=== PATIENT | male | born 1935 | race Caucasian/White ===

== ENCOUNTER 2016-08-15 07:13 | Day surgery (SDC) | payer MEDICARE ==
--- NOTE | ~2016-08-15 | EGD ---
EGD REPORT [facility] [address] [address] NAME: AMOS TRUONG : [birth year] STATUS : REG [facility]#: [id number] AGE: 80 ADM/REG DATE : 08/15/16 MR#: [id number] REPORT SERV DATE: 08/15/16 DICTATED BY: CHELO NETTLES DATE: 08/15/16 REPORT STATUS : Draft TRANSCRIBED BY: [facility] DATE: 08/15/16 Endoscopy Center Patient Name: Amos Truong Date of : 1935 Attending MD: CHELO NETTLES, Procedure Date No Time: 08/15/2016 Procedure: Upper GI endoscopy Indications: For therapy of Giraldo's esophagus, Giraldo's low grade dysplasia Referring MD: Celso You, RHIANNON BUCIO MD Medicines: Monitored Anesthesia Care Complications: No immediate complications. Estimated blood loss: None. Procedure: Pre-Anesthesia Assessment: - ASA Grade Assessment: III - A patient with severe systemic disease. After obtaining informed consent, the endoscope was passed under direct vision. Throughout the procedure, the patient's blood pressure, pulse, and oxygen saturations were monitored continuously. The GIF H190 [id number] was introduced through the mouth, and advanced to the second part of duodenum. The upper GI endoscopy was accomplished without difficulty. The patient tolerated the procedure well. Findings: The esophagus and gastroesophageal junction were examined with white light. Giraldo's esophagus was present. Islands of salmon-colored mucosa were present at 38 cm. The maximum longitudinal extent of these esophageal mucosal changes was 0.5 cm in length. Biopsies were taken with a cold forceps for histology. Verification of patient identification for the specimen was done. Estimated blood loss was minimal. The exam of the esophagus was otherwise normal. The stomach was normal. The cardia and gastric fundus were normal on retroflexion. The examined duodenum was normal. Circumferential radiofrequency ablation of Giraldo's esophagus was performed, using the CostPrize 360 catheter and balloon-based endoscopic ablation system. With the endoscope in place, the position and extent of the Giraldo's mucosa and the anatomic landmarks were noted. An appropriately sized radiofrequency ablation balloon catheter was then selected and passed transorally over the guidewire into the esophagus. The endoscope was introduced in a [id number] manner with the ablation catheter. The balloon ablation catheter was positioned under direct visualization so that the proximal edge of the electrode was at 41 cm EGD REPORT [place] [id number] [facility] [place]. [address] NAME: AMOS TRUONG : [birth year] STATUS : REG [facility] PAT#: [id number] AGE: 80 ADM/REG DATE : 08/15/16 MR#: [id number] REPORT SERV DATE: 08/15/16 DICTATED BY: CHELO NETTLES DATE: 08/15/16 REPORT STATUS : Draft TRANSCRIBED BY: [employer] DATE: 08/15/16 from the incisors. The balloon was automatically inflated and energy was applied at 10 J/cm2. The balloon electrode was moved 3 cm proximally, so that the proximal edge of the electrode was aligned with the distal edge of the ablation zone. The ablation zone was then cleaned of overlying coagulative debris using irrigation and suction via the endoscope and a cleaning cap. The ablation catheter was positioned under direct visualization so that the proximal edge of the electrode was at the distal edge of the ablation zone. Reinflation and a second round of ablation was performed with the application of 10 J/cm2 to re-treat the Giraldo's epithelium already treated with the first round of ablation. The ablation catheter and guidewire were then removed. The areas of the esophagus where Giraldo's mucosa had been ablated were then carefully examined with the endoscope. Impression: - Giraldo's esophagus. Biopsied. - Normal stomach. - Normal examined duodenum. - Circumferential radiofrequency ablation for Giraldo's esophagus performed (using the Halo 360 ablation catheter). Recommendation: - Patient has a contact number available for emergencies. The signs and symptoms of potential delayed complications were discussed with the patient. Return to normal activities tomorrow. Written discharge instructions were provided to the patient. - Return to previous diet. - Continue present medications. - Await pathology results. - Repeat the upper endoscopy in 3 months for retreatment. Procedure Code(s): --- Professional --- 88686, Esophagogastroduodenoscopy, flexible, transoral; with ablation of tumor(s), polyp(s), or other lesion(s) (includes pre- and post-dilation and guide wire passage, when performed) 71795, Esophagogastroduodenoscopy, flexible, transoral; with biopsy, single or multiple Diagnosis Code(s): --- Professional --- K22.710, Giraldo's esophagus with low grade dysplasia CPT copyright 2013 [employer]. All rights reserved. The codes documented in this report are preliminary and upon casting chipper review may be revised to meet current compliance requirements. EGD REPORT [facility] [address] [address] NAME: AMOS TRUONG : [birth year] STATUS : REG [facility] PAT#: [id number] AGE: 80 ADM/REG DATE : 08/15/16 MR#: [id number] REPORT SERV DATE: 08/15/16 DICTATED BY: CHELO NETTLES DATE: 08/15/16 REPORT STATUS : Draft TRANSCRIBED BY: [employer] DATE: 08/15/16 CHELO NETTLES 08/15/2016 9:19 AM Number of Addenda: 0 Note Initiated On: 08/15/2016 8:40 AM Scope Withdrawal Time 0 hours 0 minutes 0 seconds [address] [place] [address]
[~2016-08-15 07:13] MED LIST: AMARYL1 MG PO; APRES50 PO; ASAB PO; BEN25 PO; CARDCD120 PO; CAT3 PO; COZAAR100 MG PO; FLOMAX4 PO; GLUCOPHAGE1000 MG PO; IMDUR120 PO; ISORDIL20 PO; L20 PO; LIPITOR20 PO; LOP50 PO; MELATONIN5 M1 PO; PROTONIX PO; REFRESH OPH SO0.3 ML OPH; ZANTAC150 MG PO; ZESTRIL20 MG PO; ZOCOR40 PO
[2016-10-17] MEDS ORDERED: FERROUS SULFATE PO (19:09)
[2016-10-23] MEDS ORDERED: TRAN200 PO (16:54)
[2016-10-23] MEDS ORDERED: NXL9 PO (16:55)
[2016-10-23] MEDS ORDERED: KLOR-CON 88 MEQ PO (16:56)
[2016-10-23] MEDS ORDERED: LIPITOR40 PO (16:56)
[2016-10-23] MEDS ORDERED: PROTONIX PO (16:56)
[2016-10-23] MEDS ORDERED: CLARIT10 PO (16:57)
[2016-10-23] MEDS ORDERED: MAG OXIDE250 MG PO (16:57)
== END 2016-08-15 23:59 | disposition home or self-care (01) ==
LOC: DMU 07:13
PROVIDERS: Internal Medicine Gastroenterology
PROC: 0DB58ZX Excision of Esophagus, Via Natural or Artificial Opening Endoscopic, Diagnostic (ICD-10-PCS; principal; 2016-08-15 08:30)
DX: C15.9 Malignant neoplasm of esophagus, unspecified (principal); I10 Essential (primary) hypertension; E11.9 Type 2 diabetes mellitus without complications; I50.9 Heart failure, unspecified; K21.9 Gastro-esophageal reflux disease without esophagitis; K22.70 Barrett's esophagus without dysplasia; M19.90 Unspecified osteoarthritis, unspecified site; I25.10 Atherosclerotic heart disease of native coronary artery without angina pectoris; H54.0 Blindness, both eyes; N40.0 Benign prostatic hyperplasia without lower urinary tract symptoms; E78.00 Pure hypercholesterolemia, unspecified; Z96.1 Presence of intraocular lens; Z98.890 Other specified postprocedural states; Z90.49 Acquired absence of other specified parts of digestive tract; Z98.42 Cataract extraction status, left eye; Z98.41 Cataract extraction status, right eye; Z88.5 Allergy status to narcotic agent; Z95.1 Presence of aortocoronary bypass graft; Z88.6 Allergy status to analgesic agent
CPT/HCPCS: 82962; 88305; C1725; J2405

== ENCOUNTER 2016-10-24 06:59 | Day surgery (SDC) | payer MEDICARE ==
--- NOTE | ~2016-10-24 | EGD ---
EGD REPORT [facility] [address] 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 Estimated blood loss: None. Procedure: Pre-Anesthesia Assessment: - ASA Grade Assessment: III - A patient with severe systemic disease. After obtaining informed consent, the endoscope was passed under direct vision. Throughout the procedure, the patient's blood pressure, pulse, and oxygen saturations were monitored continuously. The GIF H190 [id number] was introduced through the mouth, and advanced to the second part of duodenum. The GIF IT Q160 [id number] was introduced through the and advanced to the. The upper GI endoscopy was accomplished without difficulty. The patient tolerated the procedure well. Findings: The esophagus and gastroesophageal junction were examined with white light. Giraldo's esophagus was present. Nodularity was present at 38 cm. The maximum longitudinal extent of these esophageal mucosal changes was 0.5 cm in length. Preparations were made for mucosal resection. Band ligator and snare mucosal resection was successfully performed. The exam of the esophagus was otherwise normal. The stomach was normal. The cardia and gastric fundus were normal on retroflexion. The examined duodenum was normal. Impression: - Giraldo's esophagus. - Normal stomach. - Normal examined duodenum. - Mucosal resection was successfully performed. Recommendation: - Return to previous diet. - Continue present medications. - Await pathology results. - Repeat the upper endoscopy in 3 months for surveillance. EGD REPORT [facility] [address] [place], [place] [address] [place] 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 All rights reserved. The codes documented in this report are preliminary and upon senior lead software engineer review may be revised to meet current compliance requirements. CHELO NETTLES, 10/24/2016 8:36 AM Number of Addenda: 0 Note Initiated On: 10/24/2016 8:12 AM Scope Withdrawal Time 0 hours 0 minutes 0 seconds [address] [facility] [place] [address]
[~2016-10-24 06:59] MED LIST changes: +CLARIT10 PO; +FERROUS SULFATE PO; +KLOR-CON 88 MEQ PO; +LIPITOR40 PO; +MAG OXIDE250 MG PO; +NXL9 PO; +TRAN200 PO
== END 2016-10-24 23:59 | disposition home or self-care (01) ==
LOC: DMU 06:59
PROVIDERS: Internal Medicine Gastroenterology
PROC: 0DB58ZX Excision of Esophagus, Via Natural or Artificial Opening Endoscopic, Diagnostic (ICD-10-PCS; principal; 2016-10-24 08:30)
DX: K22.711 Barrett's esophagus with high grade dysplasia (principal); I10 Essential (primary) hypertension; I25.10 Atherosclerotic heart disease of native coronary artery without angina pectoris; E11.9 Type 2 diabetes mellitus without complications; N40.0 Benign prostatic hyperplasia without lower urinary tract symptoms; Z95.1 Presence of aortocoronary bypass graft; Z88.1 Allergy status to other antibiotic agents; Z88.5 Allergy status to narcotic agent; Z98.41 Cataract extraction status, right eye; Z98.42 Cataract extraction status, left eye; Z96.1 Presence of intraocular lens; Z98.890 Other specified postprocedural states
CPT/HCPCS: 82962; 88305